=== PATIENT | female | born 2000 | race Two or more races ===

== ENCOUNTER 2023-07-16 18:47 | Emergency (ER) | payer OTHER ==
[~2023-07-16] VITALS: Ht 165.1 cm; Wt 54.4 kg
[2023-07-16] MEDS ORDERED: VYVANSE60 MG PO (19:06)
== END 2023-07-16 19:58 | disposition home or self-care (01) ==
LOC: ER 18:48
DX: S61.221A Laceration with foreign body of left index finger without damage to nail, initial encounter (principal); W26.0XXA Contact with knife, initial encounter; Y93.89 Activity, other specified; Y92.090 Kitchen in other non-institutional residence as the place of occurrence of the external cause